=== PATIENT | male | born 1960 | race Hispanic/Latino ===

== ENCOUNTER 2016-12-01 02:26 | Emergency (ER) | payer OTHER ==
[~2016-12-01] VITALS: Ht 180.3 cm; Wt 88.9 kg
[~2016-12-01 02:26] MED LIST: CENTRUM SILVER1 EAC2 PO; CIALIS20 M1 PO; CLOBETASOL PRO100 GM TOP; FENOFIBRATE145 MG PO; FLOMAX0.4 M1 PO; LOSARTAN POTASS50 MG PO; NEXIUM 40MG40 MG PO; OXYCOD/APAP TAB 5-3 PO; PERCOCET 325 MG1 TA2 PO; PERCOCET 5-3251 EACH PO; PRAVASTATIN SOD40 MG PO; STELARA45 MG/0.1 SC; TRAMADOL HCL50 M1 PO; XANAX0.25 M1 PO; ZOFRAN 4 MG TABL4 MG PO; ZOFRAN ODT4 M1 SL
[2016-12-01 02:39] VITALS: BP 150/95
--- NOTE | 2016-12-01 02:56 | ED UPPER/LOWER EXTREMITY COMPL ---
History of Present Illness General Chief Complaint: Upper Extremity Injury Stated Complaint: "PER PT LT SHOULDER DISLOCATED?" Source: patient Exam Limitations: no limitations Vital Signs & Intake/Output Vital Signs & Intake/Output Vital Signs Date Time Temp Pulse Resp B/P B/P Pulse O2 O2 Flow FiO2 Mean Ox Delivery Rate 12/01 0239 99.1 113 20 150/95 97 Room Air Room Air Allergies Coded Allergies: NO KNOWN ALLERGIES (03/15/16) Reconcile Medications Alprazolam (Xanax) 0.25 MG TABLET 1 TAB PO PRN ANXIETY (Reported) Clobetasol Propionate 100 GM FOAM 1 HELGA TOP PRN HEAD (Reported) Cyclobenzaprine HCl 10 MG TABLET 1 TAB PO TID PRN SPASM Esomeprazole (Nexium) 40 MG CAPSULE.DR 1 CAP PO DAILY GI (Reported) FENOFIBRATE NANOCRYSTALLIZED (Fenofibrate) 145 MG TAB 1 TAB PO DAILY TRIGLY ( Reported) Hydrocodone/Acetaminophen (Vicodin 5-300 MG Tablet) 5 MG-300 MG TABLET 1 TAB PO BID BREAKTHROUGH PAIN Ibuprofen 600 MG TABLET 1 TAB PO Q6 PRN PAIN with food Losartan Potassium 50 MG TABLET 2 TAB PO DAILY BP (Reported) Multivit-Min/FA/Lycopen/Lutein (Centrum Silver Ultra Men's Tab) 1 EACH TABLET 1 TAB PO D SUPPLEMENT (Reported) Ondansetron (Zofran Odt) 4 MG TAB.RAPDIS 1 TAB SL TID PRN nausea Pravastatin Sodium 40 MG TABLET 1 TAB PO DAILY CHOLESTEROL (Reported) Tadalafil (Cialis) 20 MG TABLET 1 TAB PO PRN ED (Reported) Tramadol HCl 50 MG TABLET 1 TAB PO BID PAIN (Reported) Ustekinumab (Stelara) (Unknown Strength) SYRINGE (Unknown Dose) SC Q90D PSORIASIS (Reported) Triage Note: 56yo MALE TO TRIAGE W/CO L SHOULDER PAIN SP FALL WHILE PLAYING BASKETBALL LAST NIGHT. CO PAIN W/ROM Triage Nurses Notes Reviewed? yes Onset: Abrupt Duration: hour(s): (6) Timing: multiple episodes today Severity: moderate, severe Severity Numbers: 10 Pain/Injury Location: Left: Shoulder. Method of Injury: direct blow Modifying Factors: Worsens With: movement. HPI: This is a 56-year-old male presents the ER chief complaint of severe left shoulder pain. He states he was playing basketball earlier yesterday with his son when he fell down and the son fell on top of him. He states it was still daylight around 8 PM. He gracia pain initially but when he went to bed he was complaining of significant left shoulder pain. He took Motrin without relief. He then took Tramadol later on which he had at home without relief. Pain is worse with range of motion. He is left-hand dominant. No head trauma or injury. No history of previous shoulder injuries. Past History Travel History Traveled to [place] past 21 day No Medical History Any Pertinent Medical History? see below for history Neurological: NONE EENT: NONE Cardiovascular: hypertension, hyperlipidemia Respiratory: NONE Gastrointestinal: NONE Hepatic: NONE Renal: nephrolithiasis Musculoskeletal: PSORIASIS Psychiatric: anxiety Endocrine: NONE Blood Disorders: NONE Cancer(s): NONE STATION ENGINEER/Reproductive: NONE Surgical History Surgical History: non-contributory Psychosocial History What is your primary language Serbian Tobacco Use: Never used ETOH Use: WEEKENDS Family History Hx Contributory? No Review of Systems Review of Systems Constitutional: Denies: chills, fever. EENTM: Reports: no symptoms. Respiratory: Denies: cough, short of breath. Cardiovascular: Denies: chest pain, palpitations, peripheral edema. Gastrointestinal/Abdominal: Reports: no symptoms. Genitourinary: Reports: no symptoms. Musculoskeletal: Reports: joint pain, joint swelling, muscle pain. Skin: Reports: no symptoms. Neurological/Psychological: Reports: no symptoms. Hematologic/Endocrine: Denies: bruising, bleeding, polyuria, polydipsia. Immunological: Reports: no symptoms. All Other Systems: Reviewed and Negative Physical Exam Physical Exam General Appearance: well developed/nourished, alert, awake, mild distress Head: atraumatic Eyes: Bilateral: PERRL, EOMI. Ears, Nose, Throat: normal pharynx, normal ENT inspection, hearing grossly normal Neck: normal inspection, supple Cardiovascular/Respiratory: regular rate/rhythm Peripheral Pulses: 2+ radial (R), 2+ radial (L) Back: normal inspection Shoulder Left: soft tissue tenderness, limited range of motion, SWOLLEN OVER AC JOINT Shoulder Right: normal range of motion, normal inspection Elbow Left: normal range of motion, normal inspection Elbow Right: normal range of motion, normal inspection Hand Left: normal inspection, normal range of motion Hand Right: normal inspection, normal range of motion Skin: intact, normal color, warm/dry Lymphatic: no anterior cervical jayla Progress Differential Diagnosis: dislocation, fracture, sprain, CLAVICLE FRACTURE, AC SEPARATION Plan of Care: Orders Procedure Date/time Status Durable Medical Equipment 12/02 303 Active Diagnostic Imaging: Viewed by Me: Radiology Read. Discussed w/RAD: Radiology Read. Radiology Impression: PATIENT: MARIXA WOOTEN PRESENT AGE: 56 PATIENT ACCOUNT NO: [id number] : 60 LOCATION: [facility] ORDERING PHYSICIAN: DEMETRIO HARVEY MD SERVICE DATE: 12/01/16 EXAM TYPE: RAD - XRY -SHOULDER COMPLETE-LEFT EXAMINATION: XR SHOULDER, LEFT CLINICAL INFORMATION: Fall while playing basketball. Pain. COMPARISON: None TECHNIQUE: Three views of the left shoulder. FINDINGS: The scapular Y view is suboptimal. There is no acute fracture. There is no apparent dislocation as the humeral head appears to articulate appropriately with the glenoid. The acromioclavicular joint is intact. The visualized lung is clear. IMPRESSION: No evidence of acute fracture or dislocation. DICTATED BY: CATHIE KINGSTON MD DATE/TIME DICTATED:12/01/16343 TEAM FACILITATOR:JUMA DATE/TIME TRANSCRIBED:12/01/16343 CONFIDENTIAL, DO NOT COPY WITHOUT APPROPRIATE AUTHORIZATION. <Electronically signed in Other Vendor System> SIGNED BY: CATHIE KINGSTON MD 12/01/16347 Departure Departure Time of Disposition: 358 Disposition: HOME OR SELF CARE Condition: Stable Clinical Impression Primary Impression: Sprain of shoulder, left Referrals: EROS TREJO,GRIFFIN Singh (PCP/Family) CINDY LANZA MD Additional Instructions: TAKE THE IBUPROFEN, VALIUM AND VICODIN DIRECTED. USE THE SLING ONLY FOR A FEW HOURS AT A TIME, ONLY NEEDED. FOLLOW UP WITH THE ORTHOPEDIC DOCTOR LISTED. Departure Forms: Customer Survey General Discharge Information Prescriptions: Current Visit Scripts Ibuprofen 1 TAB PO Q6 PRN PAIN #20 TAB with food Cyclobenzaprine HCl 1 TAB PO TID PRN SPASM #30 TAB Hydrocodone/Acetaminophen (Vicodin 5-300 MG Tablet) 1 TAB PO BID #8 TAB Procedures Splinting Location: LEFT SHOULDER IMMOBILIZER
--- NOTE | 2016-12-01 03:48 | RADIOLOGY REPORT ---
EXAMINATION: XR SHOULDER, LEFT CLINICAL INFORMATION: Fall while playing basketball. Pain. COMPARISON: None TECHNIQUE: Three views of the left shoulder. FINDINGS: The scapular Y view is suboptimal. There is no acute fracture. There is no apparent dislocation as the humeral head appears to articulate appropriately with the glenoid. The acromioclavicular joint is intact. The visualized lung is clear. IMPRESSION: No evidence of acute fracture or dislocation.
[2016-12-01] MEDS ORDERED: IBUPROFEN600 M1 PO (03:56)
[2016-12-01] MEDS ORDERED: VICODIN 5-3001 EACH PO (03:56)
[2016-12-01] MEDS ORDERED: CYCLOBENZAPRINE10 M1 PO (03:56)
== END 2016-12-01 04:12 ==
LOC: ERH 02:26
DX: S43.402A Unspecified sprain of left shoulder joint, initial encounter (principal); W19.XXXA Unspecified fall, initial encounter; Y93.67 Activity, basketball; Y92.9 Unspecified place or not applicable
CPT/HCPCS: 73030-LT; 96372; J3360